=== PATIENT | male | born 1975 | race Native Hawaiian/Other Pacific Islander ===

== ENCOUNTER → 2018-06-14 09:22 | Outpatient (CLI) | payer BC, SELFPAY ==
--- NOTE | 2018-06-14 09:25 | XR_ITS ---
XR clavicle RT HISTORY: Follow-up fracture ITS.REASON: Right Clavicle Fracture ORDERING PHYSICIAN: Ronaldo Goldberg MD PATIENT AGE: 42 years COMPARISON: 05/21/2018 FINDINGS: Minimally displaced distal clavicular fracture is once again noted with minimal inferior angulation of the distal fracture fragment this is not significant changed. There may be some minimal callus formation along the aspect of the fracture site. IMPRESSION: Healing distal clavicle fracture
== END ==
PROVIDERS: PCP Physician Assistant; Visit Provider Orthopaedic Surgery
DX: S42.001A Fracture of unspecified part of right clavicle, initial encounter for closed fracture (principal)
CPT/HCPCS: 73000

== ENCOUNTER → 2018-07-05 08:51 | Outpatient (CLI) | payer BC, SELFPAY ==
--- NOTE | 2018-07-05 08:54 | XR_ITS ---
XR clavicle RT HISTORY: Follow-up fracture ITS.REASON: RIGHT CLAVICLE FRACTURE ORDERING PHYSICIAN: Ronaldo Goldberg MD PATIENT AGE: 42 years COMPARISON: 06/14/2018 FINDINGS: Nondisplaced distal clavicular fracture once again noted within an inferior fragment at the fracture site versus callus formation similar to the previous exam. Fracture line is somewhat less apparent suggesting healing. IMPRESSION: Healing nondisplaced distal clavicular fracture
== END ==
PROVIDERS: Visit Provider Orthopaedic Surgery
DX: S42.001A Fracture of unspecified part of right clavicle, initial encounter for closed fracture (principal)
CPT/HCPCS: 73000